=== PATIENT | male | born 1965 | race Caucasian/White ===

== ENCOUNTER 2016-06-17 11:45 | Emergency (ER) | payer OTHER ==
[~2016-06-17] VITALS: Ht 177.8 cm; Wt 89.4 kg
[2016-06-17 11:57] VITALS: BP 131/85; PULSE 78; RESP 16; TEMP 97.5; O2SAT 98
--- NOTE | 2016-06-17 12:00 | NUR ---
AMBULATED TO BED 7
--- NOTE | 2016-06-17 12:10 | NUR ---
Pt report received from RAMONA Aly. Pt fell and injured 4th digit of RHA while at home. Pt able to move finger, but with pain. No trauma or deforming noted.
--- NOTE | 2016-06-17 12:15 | NUR ---
Dr. Cummings at bedside to assess pt.
--- NOTE | 2016-06-17 12:30 | NUR ---
Note ngozi in EDM - 06/17/16 at 1444 by FERNANDA Pt report received from RAMONA Aly. Pt fell and injured 4th digit of RHA while at home. Pt able to move finger, but with pain. No trauma or deforming noted.
--- NOTE | 2016-06-17 12:30 | NUR ---
Note kushone in EDM - 06/17/16 at 1442 by FERNANDA Pt report received from RAMONA Aly. Pt injured 5th digit on RHA s/p fall at home. Finger appears swollen, able to move with pain. No deformities or trauma noted.
--- NOTE | 2016-06-17 12:40 | NUR ---
Finger splint applied to digit 4 of RHA. Good cap refill to nail bed.
[2016-06-17 13:07] VITALS: BP 128/74; PULSE 88; RESP 20; TEMP 98.2; O2SAT 100
--- NOTE | 2016-06-17 13:07 | NUR ---
Note ngozi in EDM - 06/17/16 at 1447 by [email or web address] Patient given written and verbal discharge instructions and verbalizes understanding. ER discussed with patient the results and treatment provided. Patient in stable condition. ID arm band removed. Patient educated on pain management and to follow up with PMD. Pain Scale 2/10. Opportunity for questions provided and answered.
--- NOTE | 2016-06-17 13:07 | NUR ---
Patient given written and verbal discharge instructions and verbalizes understanding. ER MD discussed with patient the results and treatment provided. Patient in stable condition. ID arm band removed. Patient educated on pain management and to follow up with PMD. Pain Scale 0/10. Opportunity for questions provided and answered.
== END 2016-06-17 13:07 | disposition home or self-care (01) ==
LOC: SED 11:45
DX: S63.614A Unspecified sprain of right ring finger, initial encounter (principal); W19.XXXA Unspecified fall, initial encounter; Y93.89 Activity, other specified; Y92.098 Other place in other non-institutional residence as the place of occurrence of the external cause; Y99.8 Other external cause status
CPT/HCPCS: 73140-TC; 99284